=== PATIENT | female | born 1945 | race Caucasian/White ===

== ENCOUNTER 2019-06-03 08:05 | Day surgery (SDC) | payer MEDICARE, OTHER, SELFPAY ==
[2019-06-03] VITALS (7 sets, daily range): BP systolic 107–133; BP diastolic 71–90; PULSE 83–94; RESP 15–21; TEMP 35.6–36.8; O2SAT 92–96; BMI 25.7
--- NOTE | 2019-06-03 | PATH_ITS ---
[facility] Accession Number: [id number] . 01 Material submitted: . PART A: colon - RIGHT COLON RANDOM BIOPSIES PART B: colon - TRANSVERSE COLON RANDOM BIOPSIES PART C: colon - LEFT COLON RANDOM BIOPSIES . 02 Diagnosis: A. Right Colon, Biopsies: Colonic mucosa with no diagnostic abnormality. Negative for active, chronic, and microscopic colitis. Negative for dysplasia and malignancy. . B. Transverse Colon, Biopsies: Focal mild active colitis; please see comment. Negative for granulomata, dysplasia or malignancy. . C. Left Colon, Biopsies: Colonic mucosa with mild crypt architectural distortion and Paneth cell metaplasia; please see comment. Negative for active inflammation, granulomata, dysplasia or malignancy. . . [facility] 06/04/2019 0956 Local . 02 Comment: The findings in the left colon biopsies are consistent with a prior full-thickness mucosal injury. 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 . 02 Electronically signed: . Sudeep Ashley MD, PhD, Pathologist NPI- [id number] . 01 Gross description: . Part A: RIGHT COLON RANDOM BIOPSIES: Received in formalin are 3 fragment(s) of carreon, soft tissue measuring 0.1 x 0.1 x 0.1 cm to 0.2 x 0.2 x 0.1 cm submitted entirely in 1 cassette(s) Part B: TRANSVERSE COLON RANDOM BIOPSIES: Received in formalin are multiple fragment(s) of carreon, soft tissue measuring 0.1 x 0.1 x 0.1 cm to 0.3 x 0.2 x 0.2 cm submitted entirely in 1 cassette(s) Part C: LEFT COLON RANDOM BIOPSIES: Received in formalin are multiple fragment(s) of carreon, soft tissue measuring 0.1 x 0.1 x 0.1 cm to 0.2 x 0.2 x 0.2 cm submitted entirely in 1 cassette(s) /[facility] 06/03/2019 1901 Local . 02 Pathologist provided ICD-10: K52.9 . 02 CPT . 486106, 212541, 747768 Performed at: 01 [facility] [address] [place] [address], [place], [place] [id number] MD Servando Mercedes MD Phone: [phone] Performed at: [address] [facility] [id number] [place], [place] [id number] MD Mirian Villafana MD Phone: [phone]
--- NOTE | 2019-06-03 09:24 | PM.HP.1 ---
History of Present Illness History of Present Illness Date Patient Seen: 06/03/19 Chief complaint: [id number] Narrative: Colorectal cancer screening in a patient with ulcerative colitis. Patient History Medical History (Updated 06/03/19 @ 08:56 by Simona Albrecht RN) Ramirez esophagus (Acute) GERD without esophagitis (Acute) Ulcerative colitis (Acute) Family & Social History Social History: household members significant other Tobacco & Substance use: Smoking Status Former smoker alcohol intake frequency a few times a week Substance Use Type marijuana Meds Home Medications and Allergies Home Medications Medication Instructions Recorded Confirmed Type loperamide 0 mg PO PRN PRN #0 04/24/17 06/03/19 History mesalamine [Asacol HD] 1,600 mg PO QDAY #0 04/24/17 06/03/19 History multivitamin [Multiple Vitamins] 1 tab PO QDAY #0 04/24/17 History ranitidine HCl 300 mg PO BID #0 04/24/17 History simvastatin 20 mg PO QPM #0 04/24/17 06/03/19 History Allergies Allergy/AdvReac Type Severity Reaction Status Date / Time budesonide [From ENTOCORT EC] Allergy Severe Unverified 07/10/17 11:52 omeprazole [OMEPRAZOLE] Allergy Severe COUGH Unverified 07/10/17 11:52 Sulfa (Sulfonamide Allergy Unknown Unverified 07/10/17 11:52 Antibiotics) [SULFA (SULFONAMIDE ANTIBIOTICS)] acetaminophen [From VICODIN] AdvReac Severe OBTUNDED Unverified 07/10/17 11:52 hydrocodone [From VICODIN] AdvReac Severe OBTUNDED Unverified 07/10/17 11:52 Exam Vital Signs (past 8 hours): - 06/03/19 08:34 Temperature 98.3 F Pulse Rate 94 H Respiratory Rate 15 Blood Pressure 133/84 Pulse Oximetry 96 Oxygen Delivery Method Room Air Narrative Exam Narrative: Oropharynx free of lesions Chest clear to auscultation percussion Cardiac exam reveals no S3 or murmur Assessment & Plan Assessment & Plan narrative: Colorectal cancer screening in a patient with ulcerative colitis. Need for biopsies every 10 cm. Risks benefits alternatives have been explained.
--- NOTE | 2019-06-03 09:26 | PM.OP.ENDO ---
Operative Date/Time/Diagnoses Date of procedure: 06/03/19 Pre-op diagnosis: See indication and findings Procedure & Clinicians Study performed: Colonoscopy Same procedure as scheduled: Yes Indications: Ulcerative colitis, need for colorectal cancer screening Surgeon: Bernadette Lr Procedure Notes Procedure in detail: After informed consent was obtained patient was placed in left lateral decubitus position. The video colonoscope was introduced in the rectum slowly advanced to cecum. Preparation was good. On slow withdrawal mucosa was carefully examined. The scope was removed. The patient tolerated procedure well. Blood loss none Complications none Sedation Total sedation time 15 minutes Versed 6 mg fentanyl 100 mg IV titration Findings 1. Mild scattered left-sided inflammation and more prominent cecal inflammation. Also extensive scarring from the distal transverse colon to the proximal descending colon usually in a linear fashion. Biopsies were taken to every 10 cm in the in her colon and the bottles representing right colon transverse colon and left colon. We will be in touch regarding her biopsies. I expect will just need follow-up in 2 years.
[2019-06-03] MEDS: fentaNYL 250 MCG/5 ML INJ IV (09:56)
[2019-06-03] MEDS: MIDAZOLAM 5 MG/5 ML VIAL IV (09:57)
== END 2019-06-03 11:10 | disposition home or self-care (01) ==
PROVIDERS: PCP Family Medicine; Referring Provider Family Medicine; Visit Provider Internal Medicine Gastroenterology
PROC: 0DJD8ZZ Inspection of Lower Intestinal Tract, Via Natural or Artificial Opening Endoscopic (ICD-10-PCS; CPT 45378; principal; 2019-06-03 10:00)
DX: Z12.11 Encounter for screening for malignant neoplasm of colon (principal); K52.9 Noninfective gastroenteritis and colitis, unspecified; K51.90 Ulcerative colitis, unspecified, without complications
CPT/HCPCS: 45380; J2250; J3010

== ENCOUNTER → 2021-06-26 12:53 | Outpatient (CLI) | payer MEDICARE, OTHER, SELFPAY ==
[2021-06-26 14:50] LABS: COVID19 -Nasal RAPID Negative (Negative)
== END ==
PROVIDERS: PCP Family Medicine; Visit Provider Family Medicine Sleep Medicine
DX: Z20.822 Contact with and (suspected) exposure to COVID-19 (principal)
CPT/HCPCS: 87635; C9803

== ENCOUNTER 2021-06-28 08:19 | Day surgery (SDC) | payer MEDICARE, OTHER, SELFPAY ==
--- NOTE | 2021-06-28 | PATH_ITS ---
[facility] Accession Number: [id number] . 01 Material submitted: . PART A: colon - RIGHT COLON BX PART B: colon - TRANSVERSE COLON BX PART C: colon - LEFT COLON BX PART D: colon - RIGHT COLON POLYP . 02 Diagnosis: A-C. Right, Transverse, Left Colon, Biopsies: Colonic mucosa with no significant diagnostic abnormality. Negative for active inflammation, granulomas, dysplasia, and malignancy. . D. Right Colon Polyp, Biopsy: Small serrated lesion, cannot exclude early sessile serrated adenoma. [facility] 07/03/2021 1050 Local . 02 Electronically signed: . Sudeep Ashley MD, PhD, Pathologist NPI- [id number] . 01 Gross description: . Part A: RIGHT COLON BX: Received in formalin are 4 fragment(s) of carreon, soft tissue measuring 0.2 x 0.2 x 0.2 cm to 0.1 x 0.1 x 0.1 cm submitted entirely in 1 cassette(s) Part B: TRANSVERSE COLON BX: Received in formalin are 4 fragment(s) of carreon, soft tissue measuring 0.5 x 0.3 x 0.1 cm to 0.2 x 0.1 x 0.1 cm submitted entirely in 1 cassette(s) Part C: LEFT COLON BX: Received in formalin are multiple fragment(s) of carreon, soft tissue measuring 1.0 x 0.2 x 0.2 cm in aggregate submitted entirely in 1 cassette(s) Part D: RIGHT COLON POLYP: Received in formalin are 2 fragment(s) of carreon, soft tissue measuring 0.2 x 0.2 x 0.2 cm to 0.2 x 0.1 x 0.1 cm submitted entirely in 1 cassette(s) /[facility] 06/30/[address] [place] [address] . 02 Pathologist provided ICD-10: K51.50, D12.6 . 02 CPT . 704593, 004961, 792368, 217071 Specimen Comment: A courtesy copy of this report has been sent to [phone] Performed at: 01 [facility] [address] [address], [place], [place] [id number] MD Servando Mercedes MD Phone: [phone] Performed at: [address] [id number] MD Mirian Villafana MD Phone: [phone]
--- NOTE | 2021-06-28 09:11 | PM.HP.1 ---
History of Present Illness History of Present Illness Date Patient Seen: 06/28/21 Chief complaint: SDC Narrative: Longstanding history of ulcerative colitis need for follow-up colonoscopy for colorectal cancer screening and for staging. Patient History Medical History (Updated 06/03/19 @ 08:56 by Simona Albrecht, RN) Ramirez esophagus GERD without esophagitis Ulcerative colitis Family & Social History Social History: household members significant other Tobacco & Substance use: Smoking Status Former smoker alcohol intake frequency a few times a week Substance Use Type marijuana Meds Home Medications and Allergies Home Medications Medication Instructions Recorded Confirmed Type loperamide 2 mg capsule 0 mg PO PRN PRN #0 04/24/17 06/28/21 History multivitamin (Multiple Vitamins) 1 tab PO QDAY #0 04/24/17 History simvastatin 20 mg tablet 20 mg PO QPM #0 04/24/17 06/28/21 History Allergies Allergy/AdvReac Type Severity Reaction Status Date / Time omeprazole [OMEPRAZOLE] Allergy Severe COUGH Verified 06/28/21 09:06 Sulfa (Sulfonamide Allergy Unknown Verified 06/28/21 09:06 Antibiotics) [SULFA (SULFONAMIDE ANTIBIOTICS)] acetaminophen [From VICODIN] AdvReac Severe OBTUNDED Verified 06/28/21 09:06 hydrocodone [From VICODIN] AdvReac Severe OBTUNDED Verified 06/28/21 09:06 Exam Narrative Exam Narrative: Oropharynx free of lesions Chest clear to auscultation percussion Cardiac exam reveals no S3 or murmur Assessment & Plan Assessment & Plan narrative: Longstanding ulcerative colitis need for follow-up colonoscopy with biopsy for screening. Also to check for mucosal healing. Risks, benefits, alternatives have been explained. Time Spent With Patient Critical Care time: I spent a total of [] minutes of critical care time on this patient's care today; this time is exclusive of procedural time.
--- NOTE | 2021-06-28 09:12 | P.OP.COLON_ITS ---
Operative Date/Time/Diagnoses Date of procedure: 06/28/21 Pre-op diagnosis: See indication and findings Procedure & Clinicians Study performed: Colonoscopy Indications: Neck longstanding ulcerative colitis Surgeon: Bernadette Lr Procedure Notes Procedure in detail: After informed consent was obtained the patient was placed in left lateral decubitus position. The video colonoscope was introduced the rectum slowly advanced cecum. On slow withdrawal mucosa was carefully examined. The scope was removed. The patient tolerated procedure well. Preparation was good. Blood loss none Complications none Sedation mac Findings 1. Colonic mucosa centrally normal throughout the entire colon however left colo n may have had very slight inflammation with a bit of loss of vascular pattern in some edema. Biopsies were taken to for every 10 cm and placed in bottles labeled right, transverse, left. 2. 6 mm polyp in the proximal right colon. This was snared and removed completely. 3. Otherwise negative colonoscopy to cecum Patient stay on current medications. If she has difficulties with worsening bowel habits than she should call our office for an appointment with 1 of our providers. Otherwise she needs follow-up colonoscopy in 1-2 years given this polyp if it proves to be adenomatous.
[2021-06-28 09:13] VITALS: BP 142/78; PULSE 106; RESP 18; TEMP 36.7; O2SAT 96; BMI 25.7
[2021-06-28] MEDS: SODIUM CHLORIDE 0.9% 1,000 ML 84 ML IV (09:13)
[2021-06-28 10:01] VITALS: BP 110/73; PULSE 105; RESP 16; TEMP 36.2; O2SAT 96
[2021-06-28 10:06] VITALS: BP 108/70; PULSE 96; RESP 15; O2SAT 95
[2021-06-28 10:11] VITALS: BP 133/62; PULSE 92; RESP 16; O2SAT 94
[2021-06-28 10:17] VITALS: BP 128/73; PULSE 90; RESP 16; O2SAT 94
[2021-06-28 10:23] VITALS: BP 130/76; PULSE 86; RESP 16; TEMP 36.2; O2SAT 96
== END 2021-06-28 10:31 | disposition home or self-care (01) ==
PROVIDERS: PCP Internal Medicine; Referring Provider Internal Medicine Gastroenterology; Visit Provider Internal Medicine Gastroenterology
PROC: 0DJD8ZZ Inspection of Lower Intestinal Tract, Via Natural or Artificial Opening Endoscopic (ICD-10-PCS; CPT 45378; principal; 2021-06-28 10:00)
DX: D12.6 Benign neoplasm of colon, unspecified (principal); Z87.19 Personal history of other diseases of the digestive system
CPT/HCPCS: 45385; 45380; J2405; J2704

== ENCOUNTER 2022-07-04 12:04 | Day surgery (SDC) | payer MEDICARE, OTHER, SELFPAY ==
--- NOTE | 2022-07-04 | PATH_ITS ---
[facility] Accession Number: [id number] No. of containers..03 Tissue . 01 Material submitted: . PART A: colon - RIGHT COLON PART B: colon - TRANSVERSE COLON PART C: colon - LEFT COLON . 01 Diagnosis: A-B. Right Colon, Transverse Colon, Biopsies: Colonic mucosa with no significant diagnostic abnormality. Negative for active inflammation, granulomas, dysplasia, and malignancy. . C. Left Colon, Biopsy: Chronic colitis without neutrophilic activity, consistent with quiescent colitis. Negative for granulomas, dysplasia, and malignancy. [facility] 07/10/2022 1423 Local . 01 Electronically signed: . Mirian Villafana MD, Pathologist NPI- [id number] . 01 Gross description: . Part A: RIGHT COLON: Received in formalin are 3 fragment(s) of carreon, soft tissue measuring 0.5 x 0.2 x 0.1 cm to 0.3 x 0.1 x 0.1 cm submitted entirely in 1 cassette(s) Part B: TRANSVERSE COLON: Received in formalin are multiple fragment(s) of carreon, soft tissue measuring 1.4 x 0.4 x 0.1 cm in aggregate submitted entirely in 1 cassette(s) Part C: LEFT COLON: Received in formalin are 4 fragment(s) of carreon, soft tissue measuring 0.5 x 0.3 x 0.1 cm to 0.2 x 0.1 x 0.1 cm submitted entirely in 1 cassette(s) /[facility] 07/06/2022 1048 Local . 01 Pathologist provided ICD-10: Z86.010 . 01 CPT . 858230, 617999, 206767 Specimen Comment: A courtesy copy of this report has been sent to [phone] Performed at: 01 [facility] [address], [place], [place] [id number] MD Servando Mercedes MD Phone: [phone]
--- NOTE | 2022-07-04 13:52 | P.HP_ITS ---
History of Present Illness History of Present Illness Date Patient Seen: 07/04/22 Chief complaint: SDC Narrative: History of ulcerative colitis need for follow-up surveillance colonoscopy. Currently maintained on Asacol 800 mg 2 p.o. q.day giving her 1 bowel movement per day [facility] Medical History (Updated 06/03/19 @ 08:56 by Simona Albrecht RN) Ramirez esophagus GERD without esophagitis Ulcerative colitis Social History household members: significant other Smoking Status: Former smoker alcohol intake: current Meds Home Medications and Allergies Home Medications Medication Instructions Recorded Confirmed Type loperamide 2 mg capsule 0 mg PO PRN PRN Diarrhea ##0 04/24/17 06/28/21 History multivitamin (Multiple Vitamins 1 tab PO QDAY ##0 04/24/17 06/28/21 History tablet) simvastatin 20 mg tablet 20 mg PO QPM ##0 04/24/17 06/28/21 History Allergies Allergy/AdvReac Type Severity Reaction Status Date / Time omeprazole [OMEPRAZOLE] Allergy Severe COUGH Verified 06/28/21 09:06 Sulfa (Sulfonamide Allergy Unknown Verified 06/28/21 09:06 Antibiotics) [SULFA (SULFONAMIDE ANTIBIOTICS)] acetaminophen [From VICODIN] AdvReac Severe OBTUNDED Verified 06/28/21 09:06 hydrocodone [From VICODIN] AdvReac Severe OBTUNDED Verified 06/28/21 09:06 Exam Narrative Exam Narrative: Oropharynx free of lesions Chest clear to auscultation percussion Cardiac exam reveals no S3 or murmur Assessment & Plan Assessment & Plan narrative: History of ulcerative colitis need for follow-up surveillance colonoscopy with biopsies. Risks, benefits, alternatives have been explained.
--- NOTE | 2022-07-04 13:53 | PM.OP.COLON ---
Operative Date/Time/Diagnoses Date of procedure: 07/04/22 Pre-op diagnosis: See indication and findings Procedure & Clinicians Study performed: Colonoscopy Indications: Ulcerative colitis Surgeon: Bernadette Lr Procedure Notes Procedure in detail: After informed consent was obtained the patient was placed in left lateral decubitus position. The video colonoscope was introduced the rectum slowly advanced to the cecum. On slow withdrawal mucosa was carefully examined. Preparation was good. The scope was removed. The patient tolerated procedure well. Blood loss none Complications none Sedation mac Findings 1. Somewhat patchy erythema throughout the entire colon but overall normal. Biopsies taken to every 10 cm and divided up into right colon, transverse colon, and left colon. Britney will have follow-up colonoscopy in 2 years. His concerns for reflux she should go on some regimen of PPI daily for the next 60 weeks and subsequently have EGD performed while she is still on medications.
[2022-07-04 14:02] VITALS: BMI 25.7
[2022-07-04 14:39] VITALS: BP 131/77; PULSE 92; RESP 16; TEMP 36.7; O2SAT 95
[2022-07-04] MEDS: LACTATED RINGERS 1,000 ML 42 ML IV (14:40)
[2022-07-04 15:38] VITALS: BP 124/81; PULSE 103; RESP 16; TEMP 36.9; O2SAT 96
[2022-07-04 15:42] VITALS: BP 131/91; PULSE 99; RESP 13; TEMP 36.5; O2SAT 93
[2022-07-04 15:47] VITALS: BP 136/89; PULSE 99; RESP 16; TEMP 36.6; O2SAT 97
[2022-07-04 15:51] VITALS: PULSE 94; RESP 18; O2SAT 95
[2022-07-04 15:54] VITALS: BP 144/85; PULSE 94; RESP 16; TEMP 36.6; O2SAT 95
== END 2022-07-04 16:18 | disposition home or self-care (01) ==
PROVIDERS: PCP Internal Medicine; Referring Provider Internal Medicine Gastroenterology; Visit Provider Internal Medicine Gastroenterology
PROC: 0DJD8ZZ Inspection of Lower Intestinal Tract, Via Natural or Artificial Opening Endoscopic (ICD-10-PCS; CPT 45378; principal; 2022-07-04 14:00)
DX: K51.90 Ulcerative colitis, unspecified, without complications (principal)
CPT/HCPCS: 45380; J2704

== ENCOUNTER 2024-08-03 09:34 | Day surgery (SDC) | payer MEDICARE, OTHER, SELFPAY ==
--- NOTE | 2024-08-03 | PATH_ITS ---
[facility] Accession Number: [id number] No. of containers..04 Tissue . 01 Material submitted: . PART A: body - ESOPHAGUS, RULE OUT MIGUEL'S PART B: colon - COLON, RIGHT PART C: colon - COLON,TRANSVERSE PART D: colon - COLON, LEFT . 01 Clinical history: . A) R/O BARRETTS . 01 Diagnosis: Part A: ESOPHAGUS, RULE OUT MIGUEL'S: Squamocolumnar junctional mucosa with goblet cell (Miguel's) metaplasia, with mild active inflammation and reactive epithelial changes. No dysplasia identified. . Part B: COLON, RIGHT: Colonic mucosa with no diagnostic alterations. No active inflammation, granulomas, dysplasia, or malignancy identified. No evidence of colitis. . Part C: COLON,TRANSVERSE: Colonic mucosa with no diagnostic alterations. No active inflammation, granulomas, dysplasia, or malignancy identified. No evidence of colitis. . Part D: COLON, LEFT: Colonic mucosa with no diagnostic alterations. No active inflammation, granulomas, dysplasia, or malignancy identified. No evidence of colitis. [facility] 08/07/2024 1642 Local . 01 Electronically signed: . Servando Mercedes MD, Pathologist NPI- [id number] . 01 Gross description: . A. Received in formalin with two identifiers and 1. Rule out Miguel's, are two carreon soft tissue fragments both measuring 0.3 cm in greatest dimension. Submitted in cassette A1. . B. Received in formalin with two identifiers and 2. Right colon, are four carreon soft tissue fragments 0.2 to 0.5 cm in greatest dimension. Submitted in cassette B1. . C. Received in formalin with two identifiers and 3. Transverse colon, are three carreon soft tissue fragments 0.3 to 0.6 cm in greatest dimension. Submitted in casssette C1. . D. Received in formalin with two identifiers and 4. Left colon biopsy, are six carreon soft tissue fragments 0.3 to 0.4 cm in greatest dimension. Submitted in cassette D1. ([id number]) /[facility] 08/07/2024 1642 Local . 01 Pathologist provided ICD-10: K22.70 . 01 CPT . 205014, 295538, 076694, 173972 Specimen Comment: A courtesy copy of this report has been sent to [phone] Performed at: [address] [id number] MD Servando Mercedes MD Phone: [phone]
[2024-08-03] MEDS: LACTATED RINGERS 1,000 ML 42 ML IV (10:09)
--- NOTE | 2024-08-03 10:20 | EKG_ITS ---
[facility] [address] [place] [address] Test Date: 2024-08-03 Pat Name: Britney Khan Department: [facility] Room: Gender: Female Registered Dietitian: BRITTNI : 1945 Requested By: Order Number: [id number] Reading MD: Dru Boyd MD Measurements Intervals [place] Rate: 96 P: 35 MI: 162 QRS: -18 QRSD: 78 T: 10 QT: 354 QTc: 447 Interpretive Statements Normal sinus rhythm Minimal voltage criteria for LVH, may be normal variant ( R in aVL ) Inferior infarct , age undetermined Anterolateral infarct , age undetermined NO PRIOR TRACING Electronically Signed On 08-03-2024 11:04:11 PDT by Dru Boyd MD
[2024-08-03 10:25] VITALS: BP 145/89; PULSE 96; RESP 16; TEMP 36.3; O2SAT 100
[2024-08-03 10:33] LABS: Hematocrit 45.5 % (36-46); Hemoglobin 15.2 g/dL (12.0-16.0); Mean Corpuscular HGB Conc 33.4 % (30-36); Mean Corpuscular Hemoglobin 30.1 PG (26-34); Mean Corpuscular Volume 90.2 fL (80-100); Platelet Count 240 X10^3/uL (150-400); Red Blood Cell Count 5.04 X10^6/uL (4.0-5.2); Red Cell Distribution Width 12.9 % (11.6-14.8); White Blood Cell Count 8.2 X10^3/uL (4.5-11.0)
--- NOTE | 2024-08-03 10:36 | P.HP_ITS ---
History of Present Illness History of Present Illness Date Patient Seen: 08/03/24 Chief complaint: [facility] Medical History (Updated 06/03/19 @ 08:56 by Simona Albrecht RN) Ulcerative colitis GERD without esophagitis Ramirez esophagus Social History household members: significant other Smoking Status: Former smoker alcohol intake: current Meds Home Medications and Allergies Home Medications Medication Instructions Recorded Confirmed Type loperamide 2 mg capsule 0 mg PO PRN PRN Diarrhea ##0 04/24/17 07/04/22 History multivitamin (Multiple Vitamins 1 tab PO QDAY ##0 04/24/17 07/04/22 History tablet) simvastatin 20 mg tablet 20 mg PO QPM ##0 04/24/17 08/03/24 History acetaminophen 500 mg tablet 1,000 mg PO Q6H PRN Pain, Moderate 07/04/22 07/04/22 History loratadine 10 mg tablet 10 mg PO DAILY 07/04/22 07/04/22 History mesalamine 800 mg tablet,delayed 1,600 mg PO DAILY 07/04/22 07/04/22 History release Allergies Allergy/AdvReac Type Severity Reaction Status Date / Time Sulfa (Sulfonamide Allergy Unknown Verified 06/28/21 09:06 Antibiotics) [SULFA (SULFONAMIDE ANTIBIOTICS)] hydrocodone [From VICODIN] AdvReac Severe OBTUNDED Verified 06/28/21 09:06 Exam Vital Signs (past 8 hours): - 08/03/24 10:25 Temperature 97.3 F L Pulse Rate 96 H Respiratory Rate 16 Blood Pressure 145/89 H Pulse Oximetry 100 Oxygen Delivery Method Room Air Oxygen Delivery Method Room Air Narrative Exam Narrative: Oropharynx free of lesions Chest clear to auscultation percussion Cardiac exam reveals no S3 or murmur Objective Labs 08/03/24 06:00 08/03/24 06:00 Labs: Laboratory Results - last 24 hr 08/03/24 06:00 WBC 8.2 RBC 5.04 Hgb 15.2 Hct 45.5 MCV 90.2 MCH 30.1 MCHC 33.4 RDW 12.9 Plt Count 240 Assessment & Plan Assessment & Plan narrative: History of Barretts esophagus need for follow-up EGD. Risks, benefits, alternatives have been explained. History of ulcerative colitis on a 2 year recall program need for colonoscopy with biopsy. Time-Based Coding :: [TOTAL MINUTES] spent with patient and on the chart (including review of chart, obtaining history, exam, reviewing outside data, placing orders, documenting exam and treatment plan, and counseling patient) on [DATE]. [employer] Customer Loyalty Representative Document charge(s): No
--- NOTE | 2024-08-03 10:37 | PM.OP.EC ---
Operative Date/Time/Diagnoses Date of procedure: 08/03/24 Time of procedure: 10:37 Pre-op diagnosis: See indication and findings Post-op diagnosis: same Procedure & Clinicians Study performed: EGD and colonoscopy Same procedure as scheduled: Yes Indications: History of Barretts esophagus and history of ulcerative colitis Surgeon: Bernadette Lr Procedure Notes Procedure in detail: After informed consent was obtained the patient was placed in left lateral decubitus position. The video upper scope was placed into the oropharynx and with the patient's help swallowed into the esophagus. The esophagus stomach and duodenal were carefully examined. Retroflexed view the GE junction was performed. The scope was removed. The patient tolerated the procedure well. Patient was then turned in the colonoscope substituted. This was easily passed the cecum with good prep. On slow withdrawal mucosa was carefully examined. The scope was removed. The patient tolerated procedure well. Blood loss none Complications none Sedation mac Findings EGD 1. Wide tongue of pink tissue extending above the level of the GE folds possibly consistent with Ramirez's. Biopsied x2. 2. Fairly wide-open lower esophageal sphincter at 35 cm 3. Retroflexed view the GE junction showed a small paraesophageal hernia 4. Otherwise normal stomach 5. Normal duodenal bulb and sweep Colonoscopy One. Mild inflammation in the rectum and distal sigmoid but very mild. 2. Otherwise essentially negative colonoscopy to cecum. Two biopsies every 10 cm were taken and placed in jars labeled right colon, transverse colon, and left colon. I do not think Yoshi needs much more screening regardless of what is found. We will be in touch regarding her biopsy results. Before any further surveillance is undertaken we should speak in clinic.
[2024-08-03 10:40] LABS: BUN Creatinine Ratio 14.3 (6-22); Blood Urea Nitrogen 15 mg/dL (7-17); Calcium 10.4 mg/dL (8.4-10.2); Carbon Dioxide 23 mmol/L (22-32); Chloride 103 mmol/L (98-107); Estimated Glomerular Filt Rate 55 mL/min (>60); Glucose 101 mg/dL (70-99); HEMOLYSIS 21 (0-50); Potassium 3.8 mmol/L (3.4-5.1); Sodium 139 mmol/L (137-145)
[2024-08-03 11:22] VITALS: BP 147/99; PULSE 92; RESP 18; TEMP 36.2; O2SAT 92
[2024-08-03 11:27] VITALS: BP 144/84; PULSE 99; RESP 23; TEMP 36.2; O2SAT 95
[2024-08-03 11:35] VITALS: BP 118/72; PULSE 94; RESP 20; O2SAT 95
[2024-08-03] MEDS: ALBUTEROL 2.5 MG/3 ML NEB (ADULT) INH (11:36)
[2024-08-03 11:41] VITALS: BP 135/77; PULSE 91; RESP 21; O2SAT 96
[2024-08-03 11:46] VITALS: BP 143/74; PULSE 93; RESP 22; O2SAT 95
== END 2024-08-03 12:19 | disposition home or self-care (01) ==
PROVIDERS: Student in an Organized Health Care Education/Training Program; PCP Internal Medicine; Referring Provider Internal Medicine Gastroenterology; Visit Provider Internal Medicine Gastroenterology
PROC: 0DJ08ZZ Inspection of Upper Intestinal Tract, Via Natural or Artificial Opening Endoscopic (ICD-10-PCS; CPT 45380; principal; 2024-08-03 11:00)
PROC: 0DJD8ZZ Inspection of Lower Intestinal Tract, Via Natural or Artificial Opening Endoscopic (ICD-10-PCS; CPT 45378; 2024-08-03 11:00)
DX: Z87.19 Personal history of other diseases of the digestive system (principal); Z87.891 Personal history of nicotine dependence; K22.70 Barrett's esophagus without dysplasia
CPT/HCPCS: 45380; 43239; 36415; 80048; 85027; 93005; 93010; J2704; J7613